=== PATIENT | female | born 1950 | race Caucasian/White ===

== ENCOUNTER 2016-06-07 08:30 | Emergency (ER) | payer OTHER ==
[~2016-06-07] VITALS: Ht 168.9 cm; Wt 68.0 kg
[2016-06-07] MEDS ORDERED: XYZAL5 M1 PO (09:46)
[2016-06-07] MEDS ORDERED: TAMOXIFEN CITRA20 M1 PO (09:46)
[2016-06-07] MEDS ORDERED: ZOLPIDEM TARTRAT5 M1 PO (09:47)
[2016-06-07] MEDS ORDERED: ALPRAZOLAM0.5 M4 PO (09:47)
[2016-06-07] MEDS ORDERED: DEXILANT60 M1 PO (09:47)
[2016-06-07 09:48] LABS: ABSOLUTE BASOPHIL COUNT 0.1 /CUMM (0.0-0.2); ABSOLUTE EOSINOPHIL COUNT 0.2 /CUMM (0.0-0.7); ABSOLUTE GRANULOCYTE CT 4.4 /CUMM (1.4-6.5); ABSOLUTE LYMPH COUNT 2.1 /CUMM (1.2-3.4); ABSOLUTE MONOCYTE COUNT 0.3 /CUMM (0.10-0.60); BASOPHIL % 0.9 % (0.0-2.0); EOSINOPHIL % 2.1 % (0-5); GRANULOCYTE % 63.1 % (42.2-75.2); HEMATOCRIT 36.3 % (37-47); MEAN CORPUSCULAR HGB 28.8 PG (27.0-31.0); MEAN CORPUSCULAR HGB CONC 33.4 G/DL (33.0-37.0); MEAN CORPUSCULAR VOLUME 86.4 FL (81.0-99.0); MEAN PLATELET VOLUME 8.5 FL (7.4-10.4); PLATELET COUNT 212 /CUMM (130-400); RBC DISTRIBUTION WIDTH 13.9 % (11.5-14.5); RED BLOOD CELL CT 4.19 /CUMM (4.20-5.40); WHITE BLOOD CELL COUNT 7.1 /CUMM (4.8-10.8)
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
--- NOTE | 2016-06-07 11:37 | CT SCAN REPORT ---
EXAMINATION: CT HEAD WITHOUT AND WITH CONTRAST CLINICAL INFORMATION: Confusion and amnesia in patient with history of breast carcinoma. Evaluate for metastatic disease. COMPARISON: None TECHNIQUE: Contiguous axial imaging was performed from the skull base to vertex before and after the administration of 93 mL of Optiray 320 intravenous contrast. DLP: 1058 mGy-cm FINDINGS: The brain parenchyma has normal attenuation. No evidence of intracranial mass, focal mass effect, midline shift or hemorrhage. The leyva-white matter differentiation is well preserved. The ventricles, sulci and basilar cisterns are normal. No abnormal intra-axial or extra-axial enhancement is observed after contrast administration. No evidence of dural venous sinus thrombosis. The visualized orbits, globes and temporomandibular joints are normal. The calvarium is intact. There is a 0.6 cm mucous retention cyst of the right sphenoid sinus. Otherwise, the visualized paranasal sinuses, mastoid air cells and middle ear cavities are clear. IMPRESSION: 1. No acute intracranial pathology. 2. No evidence of metastatic disease.
[2016-06-07 12:38] VITALS: BP 110/84
== END 2016-06-07 12:39 ==
LOC: ERH 08:30
PROVIDERS: Physician Assistant Medical
DX: R42 Dizziness and giddiness (principal)
CPT/HCPCS: 93005; 93010; G0480; Q9965